=== PATIENT | male | born 2000 | race Caucasian/White ===

== ENCOUNTER 2023-01-24 14:24 | Emergency (ER) | payer SELFPAY ==
[~2023-01-24] VITALS: Ht 182.9 cm; Wt 61.2 kg
[~2023-01-24 14:24] MED LIST: MUPI2TO; Prednisone20 MG PO; SULTRIDS
[2023-01-24 14:28] VITALS: BP 139/91
[2023-01-24] MEDS ORDERED: PENVK500 PO (15:33)
== END 2023-01-24 15:50 | disposition home or self-care (01) ==
LOC: ER 14:24
DX: J02.0 Streptococcal pharyngitis (principal); Z79.899 Other long term (current) drug therapy; G40.909 Epilepsy, unspecified, not intractable, without status epilepticus
CPT/HCPCS: 87430; 99283; A9270; J1100